=== PATIENT | male | born 2005 ===

== ENCOUNTER 2023-10-21 09:25 | Emergency (ER) | payer OTHER, SELFPAY ==
--- NOTE | ~2023-10-21 | XR_ITS ---
EXAMINATION: XR hand RT min 3V INDICATION: Right hand pain, initial encounter TECHNIQUE: Three views of the right hand are obtained. COMPARISON: None available FINDINGS: There is an acute, traumatic, closed, transverse fracture in the mid shaft of the second me tacarpal. Soft tissue swelling surrounds the fracture. No additional fracture is identified. The join t spaces are normal. A well-corticated heterotopic ossification at the palmar base of the second midd le phalanx likely reflects prior injury. IMPRESSION: 1. Acute, nondisplaced fracture in the midshaft of the second metacarpal. Reviewed, dictated and finalized at location F. SUPERVISOR
[2023-10-21 09:36] VITALS: BP 159/72; PULSE 62; RESP 16; TEMP 36.6; O2SAT 100
--- NOTE | 2023-10-21 10:19 | ED.GENADULT ---
HPI - General Adult General Chief complaint: Extremity Injury, Upper Stated complaint: Right Hand Injury Time Seen by Provider: 10/21/23 10:10 Source: patient, RN notes reviewed and old records reviewed Mode of arrival: ambulatory Limitations: no limitations History of Present Illness HPI narrative: 18-year-old male who presents to [facility] with complaints of injury to his right hand which occurred on Sunday when he was hit by a baseball. Patient has pain and swelling to the dorsal aspect his right hand nearest 2nd metacarpal.Patient reports that he has been taking Ibuprofen for his discomfort and also has been using ice to his hand. Patient is right hand dominant. MD complaint: Right hand injury Onset (ago): day(s) (2 days ago injury) Location: right and upper extremity (hand) Severity: moderate Treatments prior to arrival: NSAID and cold therapy Related Data Home Medications Medication Instructions Recorded Confirmed No Home Medications 10/21/23 10/21/23 Allergies Allergy/AdvReac Type Severity Reaction Status Date / Time No Known Allergies Allergy Verified 10/21/23 10:17 Review of Systems Review of Systems: CONSTITUTIONAL: Denies fever, chills, or sweats. EYES: Denies visual changes, redness, or discharge. ENT: Denies rhinorrhea, congestion, sore throat, or otalgia. CARDIOVASCULAR: Denies chest pain, palpitations, or edema. RESPIRATORY: Denies cough or dyspnea. GASTROINTESTINAL: Denies abdominal pain, nausea, vomiting, or diarrhea. GENITOURINARY: Denies dysuria or hematuria. SKIN: Denies rash or itching. MUSCULOSKELETAL: Denies back pain, positive for right hand swelling and pain from injury, or myalgia. NEUROLOGIC: Denies headache, numbness, or weakness. PSYCHIATRIC: Denies anxiety or depression. All systems reviewed & are unremarkable except as noted in HPI and below PMFSH Social History Social History (Updated 10/21/23 @ 10:29 by Sofia Proctor NP) Smoking status: Never smoker Alcohol intake: never Substance use type: does not use Comments At time of signature, agree with nursing past medical, surgical, social and family history. There is no relevant family history pertinent to the presenting complaint Exam Narrative: GENERAL: Well-appearing, well-nourished, and in no acute distress. HEAD: Normocephalic, atraumatic. EYES: PERRLA and EOMI. ENT: Nares clear, no rhinorrhea or epistaxis. Mucous membranes moist. NECK: Supple.no lymphadenopathy CHEST: Clear to auscultation. No respiratory distress.SAO2 100% on room air HEART: Regular rate and rhythm. No murmur heard. Normal peripheral pulses. ABDOMEN: Soft, nontender, nondistended, normal active bowel sounds. EXTREMITIES: Normal range of motion. No edema.Exception noted to right hand with dorsal swelling and pain from injury on Sunday when he was hit by baseball while playing catcher position. strong right radial pulse, no tingling or numbness to right hand, nail bed have brisk capillary refill, pain to area along 2nd metacarpal area. SKIN: Warm, dry, no rash. NEURO: No focal deficits. Alert and oriented x3. Course Course Emergency Course: Patient is aware of diagnosis, understands and agrees to treatment plan.? Anticipatory guidance given.? Patient agrees to follow-up as directed and is aware of reasons to seek care at the emergency department. Portions of this record may have been created with voice recognition software Level of Care: Express Care Visit Vital Signs Vital signs: Vital Signs Temperature 36.6 C 10/21/23 09:36 Pulse Rate 62 10/21/23 09:36 Respiratory Rate 16 10/21/23 09:36 Blood Pressure 159/72 H 10/21/23 09:36 Pulse Oximetry 100 10/21/23 09:36 Oxygen Delivery Room Air 10/21/23 09:36 Temperature 36.6 C 10/21/23 09:36 Pulse Rate 62 10/21/23 09:36 Respiratory Rate 16 10/21/23 09:36 Blood Pressure 159/72 H 10/21/23 09:36 Pulse Oximetry 100 10/21/23 09:36 Oxygen Delivery Room
== END 2023-10-21 10:45 | disposition home or self-care (01) ==
PROVIDERS: Emergency Provider Registered Nurse
DX: S62.350A Nondisplaced fracture of shaft of second metacarpal bone, right hand, initial encounter for closed fracture (principal); W21.03XA Struck by baseball, initial encounter
CPT/HCPCS: 29125; 73130; 99214; G0463